=== PATIENT | male | born 1975 | race Caucasian/White ===

== ENCOUNTER → 2019-01-27 | Outpatient (CLI) | payer OTHER | LOC: CAT 16:24 | DX: M25.774 Osteophyte, right foot (principal); M77.31 Calcaneal spur, right foot ==

== ENCOUNTER → 2019-07-15 | Outpatient (CLI) | payer OTHER | LOC: ULTRA 15:51 | DX: R10.13 Epigastric pain (principal) ==

== ENCOUNTER → 2020-09-10 | Outpatient (CLI) | payer OTHER | LOC: CAT 08:11 | PROVIDERS: ATTEND Family Medicine | DX: Z13.6 Encounter for screening for cardiovascular disorders (principal); I25.10 Atherosclerotic heart disease of native coronary artery without angina pectoris; E78.00 Pure hypercholesterolemia, unspecified ==

== ENCOUNTER 2021-12-31 15:20 | Inpatient (IN) | payer OTHER ==
[~2021-12-31] VITALS: Ht 177.8 cm; Wt 88.5 kg
--- NOTE | ~2021-12-31 | HC ---
[facility] [address] [place] [address] CONSULTATION Name: RAKESH MCLEOD Room #: 204-P ADM IN M.R.#: [id number] Admission: 12/31/21 Attend Phys: Alex Gongora MD Discharge: Date of : 71 Report #: [id number] THIS REPORT FOR: cc: Jeremías Lopez MD, Neal A. MD Lundgren,Tom Christie MD [facility] ~ DATE OF SERVICE: 12/31/2021 REASON FOR CONSULTATION: Chest pain. HISTORY OF PRESENT ILLNESS: The patient is a 46-year-old gentleman with a fairly limited past history. Over the past 2 weeks, he has had intermittent chest tightness. This originally started with left upper shoulder and neck pain. He thought that this was musculoskeletal in origin. Last and Thursday, this developed into a more tightness, squeezing feeling in his upper chest. The pain would come and go, but was not persistent. Last night, he had a more severe episode of discomfort as he did today causing him to drive into the Emergency Room where an EKG at 1530 demonstrated sinus rhythm with inferolateral injury pattern. STEMI was activated. He denies orthopnea or paroxysmal nocturnal dyspnea. No prior cardiac history. A CardioScan performed in 08/2020, had a 0 calcium score. He has been vaccinated. No symptoms to suggest COVID infection or exposures. ALLERGIES: HE IS ALLERGIC TO AN ADHESIVE TAPE. MEDICATIONS: He takes no prescription medicines. PAST MEDICAL HISTORY: Medical records have been reviewed and include a history of 3 prior shoulder surgeries and epidural spinal injection. SOCIAL HISTORY: He is . Former smoker. 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 FAMILY HISTORY: Unremarkable for premature coronary disease. REVIEW OF SYSTEMS: All systems negative except as that noted above. PHYSICAL EXAMINATION: GENERAL: Pleasant gentleman, in moderate distress. VITAL SIGNS: Blood pressure is 144/78, heart rate of 84 and regular, respirations unlabored at 18. HEENT: There are neither xanthelasma, subcutaneous xanthomata, oral mucosal or digital cyanosis or kyphoscoliosis present. CHEST: Clear to auscultation and percussion. CARDIAC: Reveals a regular rate and rhythm with normal S1, S2. No murmurs or rubs. ABDOMEN: Soft and nontender. [facility] [address] [place] [address] CONSULTATION Name: RAKESH MCLEOD Room #: [address] [place] [address] [place] .R.#: [id number] Admission: 12/31/21 Attend Phys: Alex Gongora MD Discharge: Date of : 71 Report #: [id number] EXTREMITIES: Without edema. Radial pulses are 2+. NEUROLOGIC: He is alert with a nonfocal exam. LABORATORY DATA: EKG, sinus rhythm with inferolateral ST segment elevation. Hemoglobin 15.3, white count 7.7, platelet count 305. IMPRESSION: 1. Probable acute inferolateral myocardial infarction. 2. Recent venous ablation, left leg. 3. Unknown lipid status. RECOMMENDATIONS: Coronary angiography. The angiographic procedure was discussed in detail including its associated risks. After a thorough discussion of the procedure, its risks and alternatives and after answering his questions, he is agreeable to proceeding. By: 1456 2048 Tom Bernal MD, FACC /nt
[2021-12-31 15:26] VITALS: BP 144/78
[2021-12-31 15:40] LABS: ABSOLUTE NEUTROPHILS 4.3 thou/uL (1.4-8.2); BASOPHILS 0.5 % (0.0-2.0); EOSINOPHILS 5.1 % (0.0-3.0); HEMOGLOBIN 15.3 gm/dL (14.0-18.0); LYMPHOCYTES 27.4 % (24.0-44.0); MCH 30.9 pg (26.0-34.0); MCV 90.8 fL (80.0-100.0); MONOCYTES 11.4 % (1.0-8.0); PLATELET COUNT 305 thou/uL (150-400); POLYS 55.6 % (36.0-66.0); RBC 4.96 mil/uL (4.50-6.00); RDW 13.4 % (10.5-14.5); WBC 7.7 thou/uL (4.0-11.0)
--- NOTE | 2021-12-31 15:45 | NUR ---
Dr. Bernal at bedside with cardiology
[2021-12-31 15:50] LABS: CALCIUM 9.2 mg/dL (8.5-10.1); CREATININE 0.8 mg/dL (0.7-1.3); POTASSIUM 4.5 mmol/L (3.5-5.1)
[2021-12-31 15:55] VITALS: BP 159/97
[2021-12-31 16:00] LABS: TOTAL BILIRUBIN 0.9 mg/dL (0.2-1.0)
--- NOTE | 2021-12-31 16:12 | EKG ---
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 : 1975 Requested By: Ayad Madrigal Order Number: [id number] MD: Jacobo Moya Measurements Intervals Advance Rate: 98 P: 52 KS: 150 QRS: 75 QRSD: 98 T: 60 QT: 344 QTc: 440 Interpretive Statements Sinus rhythm Probable left atrial enlargement Inferior infarct, acute (LCx) LATERAL LEADS ARE ALSO INVOLVED Lateral leads are also involved No previous ECG available for comparison Electronically Signed On 12-31-2021 16:11:58 WAREHOUSE SORTER by Jacobo Moya [email or web address] <ELECTRONICALLY SIGNED> By: Jacobo Moya MD, [facility] 12/31/21 1611 1530 1530 Jacobo Moya MD, FACC /EPI
[2021-12-31 16:14] LABS: APTT 27.3 Seconds (24.5-32.8); INR 0.95; PROTIME 10.4 Seconds (10.5-12.1)
[2021-12-31 17:00] VITALS: BP 128/73
--- NOTE | 2021-12-31 17:36 | CATHLAB ---
[facility] [place] [address] INVASIVE PROCEDURE REPORT Name: RAKESH MCLEOD Room #: 204-P ADM IN M.R.#: [id number] Admission: 12/31/21 Attend Phys: Alex Gongora MD Discharge: Date of : 71 Report #: [id number] THIS REPORT FOR: cc: Jeremías Lopez MD, Neal A. MD Lundgren, Craig H. MD [facility] ~ APPROVED REPORT Study performed: 12/31/2021 15:43:49 Patient Details Patient Status: ED Room #: The patient is a 46 year-old male Event Personnel Tom Bernal Health Promoter, David Rivera RN RN, Diana Villar RTR, PRINTER MAINTAINER Monitor, Sandra Schaeffer Procedures Performed Art Access - R femoral artery* Left Heart Cath w/or w/o Coronaries [id number] [facility] 16534 Initial Mod Sed Same Phys/QHP [facility] 129618 16017 Mod Sed Same Phys/QHP Ea 385439 Hemostasis w/ Mynx Indication Chest pain Procedure Narrative The patient was brought urgently to the Cardiac Catheterization Laboratory and was prepped and draped in a sterile manner. The Right Groin^ was infiltrated with 1% Lidocaine subcutaneous anesthesia. A PINNACLE 6FR Sheath #[id number] sheath was inserted into the RFA^. Coronary angiography was performed using coronary diagnostic catheters. The right coronary system was accessed and visualized with a JR4 catheter. The left coronary system was accessed and visualized with a JL4 catheter. The left ventricle was accessed and visualized with a ANGLED PIGTAIL catheter. Left ventricular/Aortic Valve gradient assessed via catheter pullback. Left ventriculogram was performed in DAVID projection. Closure device was deployed with a 6 Fr MYNXGRIP 6/7F #[id number]. The patient tolerated the procedure well and there were no complications associated with the procedure. There was no hematoma. Intraoperative Conscious Sedation Sedation start time: 16:01 Case end Time: [facility] [address] [place] [address] INVASIVE PROCEDURE REPORT Name: RAKESH MCLEOD Room #: 204-P [facility] IN [facility]#: [id number] Admission: 12/31/21 Attend Phys: Alex Gongora MD Discharge: Date of : 71 Report #: [id number] 16:32 Fentanyl 50 mcg Versed 2 mg Fluoro Time: 1.31 minutes Dose: DAP 2539.80 cGycm2 287 mGy Contrast Type and Amount: Visipaque 105 ml Coronary Angiography The patient's coronary anatomy is right dominant. Diagnostic Cath Left Main Normal left main LAD Normal left anterior descending Diagonal 1 Relatively small first diagonal branch, normal Circumflex Normal circumflex OM1 Large trifurcating marginal branch, angiographically normal Right Coronary Normal right coronary R PDA Normal posterior descending RPLV Normal posterior lateral branch Left Ventriculography The left ventricle is normal in size with normal contractility. The left ventricular ejection fraction is estimated to be 65%. Left ventricular wall motion abnormalities are not present. There is no mitral insufficiency. Hemodynamics The aortic pressure is 145/81 mmHg with a mean of 108 mmHg. The left ventricular pressure is 146/7 mmHg with a mean of mmHg. The left ventricular end diastolic pressure is 16 mmHg. Conclusion 1. Normal global and regional left ventricular systolic function. EF 65-70% 2. Normal left main 3. Normal coronary vasculature. Right coronary dominant circulation <ELECTRONICALLY SIGNED> By: Tom Bernal MD, FACC 12/31/21 1736 1736 1736 Tom Bernal MD, FACC /INF
--- NOTE | 2021-12-31 17:44 | NUR ---
PT ARRIVED ON THE UNIT AT 1655, ORDERS TO CHECK GROIN SITE Q15 FOR THE FIRST HOUR AND Q30 MIN FOR THE SECOND HOUR. 3 HOURS OF BED REST. PT IS PLEASANT, ALERT AND ORIENTED AND HIS IS AT HIS BEDSIDE.
[2021-12-31 19:29] VITALS: BP 126/80
[2022-01-01 00:35] VITALS: BP 123/70
[2022-01-01 03:08] LABS: HEMATOCRIT 40.2 % (42.0-52.0); HEMOGLOBIN 13.6 gm/dL (14.0-18.0); MCH 31.1 pg (26.0-34.0); MCHC 33.9 g/dL (28.0-37.0); MCV 91.8 fL (80.0-100.0); RBC 4.38 mil/uL (4.50-6.00); RDW 13.1 % (10.5-14.5); WBC 8.3 thou/uL (4.0-11.0)
--- NOTE | 2022-01-01 03:27 | NUR ---
Assumed pt care at 1900. Pt is alert and oriented. No sign of distress noted. Right groin site is intact. Denies pain. Pulses stable. Assessment completed and documemted. CXR completed. Scheduled meds administered to patient. No acute event during the night. Continue to monitor. No futher needs at this time.
[2022-01-01 04:00] VITALS: BP 131/65
[2022-01-01 04:19] LABS: ANION GAP 11 mmol/L (7-16); BUN 16 mg/dL (7-18); CALCIUM 8.3 mg/dL (8.5-10.1); CHLORIDE 105 mmol/L (98-107); CHOLESTEROL 156 mg/dL (<200); CO2 24 mmol/L (21-32); CREATININE 0.9 mg/dL (0.7-1.3); GLUCOSE 94 mg/dL (74-106); HDL CHOLESTEROL 51 mg/dL (>40); LDL CHOLESTEROL 88 mg/dL (<100); POTASSIUM 4.1 mmol/L (3.5-5.1); SODIUM 140 mmol/L (136-145); TC:HDL 3.1 Ratio (Not establshd); TRIGLYCERIDE 85 mg/dL (<150); VLDL 17 mg/dL (<40)
[2022-01-01 04:29] LABS: SERUM ASSESSMENT Clear
[2022-01-01 08:02] VITALS: BP 114/58
--- NOTE | 2022-01-01 08:06 | EKG ---
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 : 1975 Requested By: Tom Bernal Order Number: [id number] : Jacobo Moya Measurements Intervals [place] Rate: 72 P: 40 MT: 173 QRS: 53 QRSD: 102 T: 29 QT: 376 QTc: 412 Interpretive Statements Sinus rhythm Probable left atrial enlargement ST elev, probable normal early repol pattern Compared to ECG 12/31/2021 15:30:43 ST (T wave) deviation now present Myocardial infarct finding no longer present Electronically Signed On 01-01-2022 8:06:31 PAD MACHINE OPERATOR by Jacobo Moya [email or web address] <ELECTRONICALLY SIGNED> By: Jacobo Moya MD, [facility] 01/01/22805 8 8 Jacobo Moya MD, [facility] /EPI
[2022-01-01] MEDS ORDERED: COLCRYS0.6 MG PO (08:55)
[2022-01-01] MEDS ORDERED: ASPIRIN325 PO (08:55)
--- NOTE | 2022-01-01 09:43 | 2DMMODE ---
[facility] [place] [address] 2 D/M-MODE ECHOCARDIOGRAM Name: RAKESH MCLEOD Room #: 204-P ADM IN M.R.#: [id number] Admission: 12/31/21 Attend Phys: Alex Gongora MD Discharge: Date of : 71 Report #: [id number] THIS REPORT FOR: cc: Jeremías Lopez MD, Neal A. MD Lundgren,Tom Christie MD [facility] ~ APPROVED REPORT Study performed: 01/01/2022 08:45:53 EXAM: Comprehensive 2D, Doppler, and color-flow Echocardiogram Patient Location: Bedside Room #: 204 Status: routine BSA: 2.07 HR: 85 bpm BP: 114/58 mmHg Rhythm: NSR Other Information Study Quality: Good Indications Pericarditis, chest pain. 2D Dimensions RVDd: 38.76 mm IVSd: 10.39 (7-11mm) LVOT Diam: 24.30 (18-24mm) LVDd: 52.01 mm PWd: 10.23 (7-11mm) Ascending Ao: 33.82 (22-36mm) LVDs: 33.68 (25-40mm) Left Atrium: 42.56 (27-40mm) Aortic Root: 36.93 mm Volumes Left Atrial Volume (Systole) Single Plane 4CH: 43.82 mL Single Plane 2CH: 45.81 mL LA ESV Index: 24.00 mL/m2 Aortic Valve AoV Peak Brandt.: 1.68 m/s AO Peak Gr.: 11.30 mmHg LVOT Max P.41 mmHg LVOT Max V: 1.45 m/s KATHLEEN Vmax: 4.00 cm2 [facility] [address] [place] [address] 2 D/M-MODE ECHOCARDIOGRAM Name: RAKESH MCLEOD Room #: 204-[facility] IN [facility]#: [id number] Admission: 12/31/21 Attend Phys: Alex Gongora MD Discharge: Date of : 71 Report #: [id number] Mitral Valve E/A Ratio: 1.3 MV Decel. Time: 191.48 ms MV E Max Brandt.: 0.88 m/s MV A Brandt.: 0.66 m/s MV PHT: 55.53 ms IVRT: 65.74 ms Pulmonary Valve PV Peak Brandt.: 1.41 m/s PV Peak Gr.: 7.95 mmHg Pulmonary Vein P Vein S: 0.53 m/s P Vein A: 0.32 m/s P Vein D: 0.51 m/s P Vein A Dur.: 90.0 msec P Vein S/D Ratio: 1.04 Tricuspid Valve TR Peak Brandt.: 2.22 m/s RAP Estimate: 5.00 mmHg TR Peak Gr.: 20.00 mmHg PA Pressure: 25.00 mmHg Left Ventricle The left ventricle is normal size. There is normal LV segmental wall motion. There is normal left ventricular wall thickness. Left ventricular systolic function is normal. LVEF is 60-65%. The left ventricular diastolic function is normal. Right Ventricle The right ventricle is normal size. The right ventricular systolic function is normal. Atria The left atrium size is normal. The right atrium size is normal. Aortic Valve The aortic valve is normal in structure. No aortic regurgitation is present. There is no aortic valvular stenosis. Mitral Valve The mitral valve is normal in structure. There is no mitral valve regurgitation noted. No evidence of mitral valve stenosis. Tricuspid Valve The tricuspid valve is normal in structure. Trace tricuspid [facility] [address] [place] [address] 2 D/M-MODE ECHOCARDIOGRAM Name: RAKESH MCLEOD Room #: 204-P [facility] IN .R.#: [id number] Admission: 12/31/21 Attend Phys: Alex Gongora MD Discharge: Date of : 71 Report #: [id number] regurgitation. Estimated PAP is 25mmHg. Pulmonic Valve The pulmonary valve is normal in structure. Trace pulmonic regurgitation. Great Vessels The aortic root is normal in size. The ascending aorta is normal in size. IVC is normal in size and collapses >50% with inspiration. Pericardium There is no pericardial effusion. <Conclusion> Left ventricular systolic function is normal. There is normal LV segmental wall motion. LVEF is 60-65%. Normal diastolic function The aortic valve is normal in structure. No aortic regurgitation or stenosis The mitral valve is normal in structure. No mitral valve regurgitation Trace tricuspid regurgitation. Estimated pulmonary artery pressure of 25mmHg. There is no pericardial effusion. <ELECTRONICALLY SIGNED> By: Tom Bernal MD, FACC 01/01/2243 2 Tom Bernal MD, FACC /INF
[2022-01-01 11:38] VITALS: BP 111/69
[2022-01-01 14:44] VITALS: BP 111/69
[2022-01-01 15:08] LABS: ANA INTERPRETATION Negative (Negative)
== END 2022-01-01 15:10 | disposition home or self-care (01) | DRG 281 ==
LOC: ER 15:20 → EROBS 16:17 → 2N 16:59
PROVIDERS: Emergency Medicine; Internal Medicine; ADMIT Hospitalist; ATTEND Hospitalist
PROC: B211YZZ Fluoroscopy of Multiple Coronary Arteries using Other Contrast (ICD-10-PCS; principal; 2021-12-31)
PROC: 4A023N7 Measurement of Cardiac Sampling and Pressure, Left Heart, Percutaneous Approach (ICD-10-PCS; principal; 2021-12-31)
PROC: B215YZZ Fluoroscopy of Left Heart using Other Contrast (ICD-10-PCS; principal; 2021-12-31)
DX: I21.3 ST elevation (STEMI) myocardial infarction of unspecified site (principal); I31.9 Disease of pericardium, unspecified; I10 Essential (primary) hypertension; Z20.822 Contact with and (suspected) exposure to COVID-19; Z88.8 Allergy status to other drugs, medicaments and biological substances; Z87.891 Personal history of nicotine dependence
CPT/HCPCS: 10081; 10797

== ENCOUNTER → 2022-01-02 | Outpatient (CLI) | payer OTHER ==
[~2022-01-02] MED LIST: ASPIRIN325 PO; COLCRYS0.6 MG PO
== END ==
LOC: SJCVCIMAG 13:18
PROVIDERS: ATTEND Internal Medicine
DX: R10.31 Right lower quadrant pain (principal); R19.03 Right lower quadrant abdominal swelling, mass and lump; G89.18 Other acute postprocedural pain